=== PATIENT | female | born 1995 | race Caucasian/White ===

== ENCOUNTER 2019-07-22 16:02 | Emergency (ER) | payer BC, SELFPAY ==
[2019-05-16 16:43] VITALS: BMI 52.8
[2019-07-22 16:03] VITALS: BP 149/89; PULSE 104; RESP 16; TEMP 36.8; O2SAT 97; BMI 56.7
[2019-07-22 16:18] VITALS: BP 149/89; PULSE 104; RESP 16; TEMP 36.8; O2SAT 97
[2019-07-22 16:37] LABS: Mucous, Urine 0 SEEN /hpf (<or=2+); Red Blood Cells-Urine 0 SEEN /hpf (0-5)
[2019-07-22] MEDS: Ketorolac 30 MG/ML Syringe IV (16:40)
[2019-07-22] MEDS: 0.9% Normal Saline 1,000 ML 999 ML IV (16:40)
[2019-07-22] MEDS: Metoclopramide 10 MG/2 ML Vial IV (16:41)
[2019-07-22 16:42] LABS: Color, Urine Yellow (Yellow); Glucose, Dipstick Normal (Normal); Ketone-Dipstick Negative (Negative); Leukocyte Esterase-Dipstick 25 /ul (Negative); Nitrite-Dipstick Negative (Negative); Occult Blood-Urine Negative /ul (Negative); Protein-Dipstick Negative (Negative); Urine Bilirubin Dipstick Negative (Negative); Urine Clarity Sl. Cloudy (Clear); Urine Urobilinogen Normal (Normal)
[2019-07-22 16:45] LABS: Internal QC Validated? YES +Cl - CLEAR BKGD; Pregnancy, Urine Negative Negative
[2019-07-22 16:51] LABS: Bacteria 1+ /hpf (None Seen); Squamous Epithelial Cells - UA 0-5 SEEN /hpf (5-10); White Blood Cells 0-5 SEEN /hpf (0-5)
--- NOTE | 2019-07-22 16:56 | ED.VISSUMM ---
- ER Visit Summary Date of Service: 07/22/19 Chief Complaint: Headache and back pain History of Present Illness: The patient is a [address] Vasquez. She reports that she has a headache that began 2 days ago. Is gradually gotten worse. It is a throbbing headache that is frontal in location. She states is 7 out of 10 at worst and 4-10 currently. Is worsened by sound. She taken ibuprofen and Excedrin with minimal relief. She is had nausea without any vomiting. She denies any change in her vision. No photophobia. No fever or chills. No recent injury to her head. Patient also complains of low back pain again approximately 2 hours ago. Is a sharp pain it was 6 out of 10 at worst and 5-10 currently. Is increased with sitting up. Nothing makes this better. There is no ration to her legs. No problems with her bowels or bladder. No groin numbness. Physical Examination: Vitals: Stable. Afebrile. General: A&O x 3. NAD. Cardiovascular exam: Regular rate and rhythm, no murmur, rub or gallop. Respiratory exam: Clear to auscultation bilaterally. No wheezes or stridor. Abdominal exam: Soft, nontender, nondistended, normal bowel sounds. No peritoneal signs. Back: Diffuse moderate tenderness to palpation over the lumbar spine and the paraspinous musculature in the lumbar region. No point tenderness. Negative straight leg bilaterally. 5/5 DF, PF, EHL bilaterally. Normal sensation to light touch throughout. Extremity: No clubbing, cyanosis, or edema. Test Results: Urinalysis is negative. test is negative. Emergency Department Course and Treatment: Patient was given a liter of normal saline. She was given Toradol and Reglan IV. She is had significant relief. Treatment Plan: Patient will be discharged with Reglan. Instructed to continue to use this for headache as needed. She is also instructed use ibuprofen and/or Tylenol for her back pain. Follow-up with her primary care physician in 1 to 2 days if not improving. Return to the emergency department for any worsening symptoms. Disposition: To home in improved and stable condition. Impression: 1 1. Cephalgia. 2. Low back pain, acute. This note was generated with [employer] software. It may contain incorrect words, spelling, and punctuation that were not noted in review of the chart prior to signing ED Disposition - Plan for ED Patient: Instructions: ED Headache Unspecified, ED Back Pain Acute or Chronic Prescriptions: Metoclopramide [Reglan] 10 mg PO 4X/DAY PRN #20 tablet PRN Reason: Headache Referrals: Azar Yuen STRANDING MACHINE OPERATOR-C [Primary Care Provider] - 1-2 Days if not improving
[2019-07-22 17:04] VITALS: BP 149/89; PULSE 104; RESP 16; TEMP 36.8; O2SAT 97
[2019-07-22 17:32] VITALS: BP 136/78; PULSE 96; RESP 16; O2SAT 99
== END 2019-07-22 17:34 | disposition home or self-care (01) ==
LOC: ED 16:50
PROVIDERS: Emergency Provider Emergency Medicine; PCP Nurse Practitioner Primary Care
DX: R51 Headache (principal); M54.5 Low back pain
CPT/HCPCS: 81001; 81025; 96361; 96374; 96375; 99283; J7030; A4216

== ENCOUNTER 2019-08-02 22:58 | Emergency (ER) | payer BC, SELFPAY ==
[2019-08-02 22:59] VITALS: BP 154/88; PULSE 138; RESP 16; TEMP 37.6; O2SAT 95; BMI 58.9
--- NOTE | 2019-08-02 23:22 | EKG12_ITS ---
Test Reason : FEVER Blood Pressure : / mmHG Vent. Rate : 115 BPM Atrial Rate : 115 BPM P-R Int : 122 ms QRS Dur : 086 ms QT Int : 328 ms P-R-T Axes : 031 019 010 degrees QTc Int : 453 ms Sinus tachycardia Otherwise normal ECG Confirmed by MYA PETERSEN MD ([id number]), movie editor KIN YOUNG ([id number]) on 08/04/2019 3:18:28 PM Referred By: BB Confirmed By:MYA PETERSEN MD
--- NOTE | 2019-08-02 23:22 | RAD_ITS ---
STUDY: X-RAY CHEST REASON FOR EXAM: Female, 24 years old. FEVER, COUGH X 1 WEEK TECHNIQUE: Single AP portable view of the chest. COMPARISON: None. FINDINGS: The lungs are clear and expanded. There is no demonstrated pleural abnormality. Normal size heart. Normal mediastinum and christel. Normal visualized pulmonary arteries. Normal visualized aortic arch and descending thoracic aorta. Normal visualized thoracic spine. Normal visualized ribs, clavicles, and shoulders. There is no demonstrated abnormality of the visualized soft tissue structures of the upper abdomen. RAD/Chest 1 View (Portable) IMPRESSION: Normal x-ray examination of the chest. Electronically Signed: Santiago Champion, at 0:12 EDT Tel , Service support ,
--- NOTE | 2019-08-02 23:24 | ED.DCSUM_ITS ---
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 She states she was seen at [facility] for some outpatient testing including COVID after having 3 different virtual doctor visits, and was tested for influenza. She tested negative for COVID and positive for influenza and told that she has pneumonia. She states she never had a chest x-ray. She denies any shortness of breath. Her cough is been nonproductive. She presents here tonight because of persistence of fevers despite taking antipyretics and 1- 2 days of pain in her left calf and her right buttock without injury that she knows of. She denies any swelling or edema in her legs. She has no past medical history or history of DVT or PE. She states she takes no prescriptions other than what she has been given during this illness which includes basically just a cough suppressant. Later, she admits that she takes control pills, but hasn't taken any in the last week. Past Medical History - Allergies and Home Meds Allergies/Adverse Reactions: Allergies No Known Allergies Allergy (Verified 07/22/19 16:02) Primary Care Physician: Azar Yuen NP-C [Primary Care Provider] - Past Medical History: None Smoking Status: Current some day smoker - Vaping only Drugs: None - Family History Maternal Family History: Reports: Clotting Disorder - MTHFR, Heart Disease - 7 stents and 2-way CABG Review of Systems General: Reports: Chills, Fever. Denies: Sweats Eyes: Denies: Visual changes - bilaterally, Diplopia ENT: Reports: Rhinorrhea. Denies: Bilateral ear pain, Sore throat Cardiovascular: Denies: Chest pain, Palpitations Respiratory: Reports: Cough. Denies: Dyspnea, Sputum, Dyspnea on exertion Gastrointestinal: Denies: Abdominal pain, Nausea, Vomiting, Diarrhea, Melena, Hematochezia Genitourinary: Denies: Dysuria, Hematuria, Frequency Musculoskeletal: Reports: Back pain - Right buttock only. No midline back pain., Extremity Pain. Denies: Neck pain, Swelling Skin: Denies: Rash, Wounds Neurological: Denies: Headache, Weakness, Numbness Physical Exam Vital Signs/Narrative: Vital Signs Temp Pulse Resp BP Pulse Ox 08/02/19 22:59 99.6 F H 138 H 16 154/88 H 95 Inital Vital Signs reviewed: Yes General: Well nourished, Well developed, Obese, No Acute Distress Head: Normocephalic, Atraumatic Eyes: Perrl, EOMI ENT: Moist mucous membranes, No rhinorrhea, TM's clear. Negative for: Sinus tenderness Neck: Supple, Nontender, No lymphadenopathy, No JVD Cardiovascular: Regular rate, Regular rhythm, No murmurs, Tachycardia Respiratory: No distress, CTA bilaterally, Chest nontender Abdomen: Soft, Nontender, Nondistended, Normal bowel sounds Back: Nontender, Normal Inspection, - - Tender in right buttock, with palpation into the subcutaneous fat and muscle, deep palpation not necessary to elicit pain. Inspection in this area is normal.. Negative for: CVA tenderness Extremities: No edema, Calf Tenderness - Mild, left only. No palpable cords, no skin lesions., - - Painless full range of motion of all joints including the right hip without pain in the groin. Skin: Normal color, No rash, No Trauma Neurological: Alert, Oriented x3, Cranial nerves II-XII grossly intact, Normal Strength, Normal Sensation, Normal Gait Psychological: Normal affect, Normal Mood Diagnostic/Tx/Re-eval Impressions Chest X-Ray 08/02/19 23:22 IMPRESSION: Normal x-ray examination of the chest. Electronically Signed: Santiago Champion at 0:12 EDT Tel , Service support , Chest CTA 08/03/19 00:14 IMPRESSION: Multiple moderate sized lobar, segmental and subsegmental pulmonary emboli are seen in the right and left lingular lobes. There is no evidence of right heart strain. Electronically Signed: Santiago Champion at 2:04 EDT Tel , Service support , ADDENDUM: 08/03/19 0217 IMPRESSION: Multiple moderate sized lobar, segmental and subsegmental pulmonary emboli are seen in the right and left lingular lobes. There is no evidence of right heart strain. N.B. : The above information has been verbally conveyed by Santiago Champion to Devon Biggs MD, on 08/03/2019 02:10:51 (ET). Electronically Signed: Santiago Champion, at 2:04 EDT Tel , Service support , 08/02/19 23:22 Chest 1 View (Portable) [RAD] Stat 08/03/19 00:14 CTA Chest W/WO Contrast [CT] Stat 08/03/19 01:46 Mucosa - Nasopharyngeal Coronavirus COVID-19 PCR - Final - Not Detected Laboratory Results 08/02/19 08/02/19 08/02/19 23:18 23:18 23:18 WBC 11.8 H RBC 4.89 Hgb 13.2 Hct 41.9 MCV 85.7 MCH 27.0 MCHC 31.5 L RDW Std Deviation 43.0 RDW Coeff of [place] 13.6 Plt Count 210 MPV 10.0 Immature Gran % (Auto) 0.300 Neut % (Auto) 36.3 L Lymph % (Auto) 57.0 H Cavalier % (Auto) 4.2 Eos % (Auto) 1.2 Baso % (Auto) 1.0 Absolute Neuts (auto) 4.3 Absolute Lymphs (auto) 6.70 H Nucleated RBC % 0 Reactive Lymphocytes 2+ Platelet Estimate ADEQUATE RBC Morphology NORM C+C PT 13.8 INR 1.1 APTT 33.0 D-Dimer Quant (PE/DVT) 10.45 H* Sodium 139 Potassium 3.5 Chloride 107 Carbon Dioxide 26.0 Anion Gap 6 BUN 9 Creatinine 0.86 Estim Creat Clear Calc 77.43 Est GFR (MDRD) Af Amer 106 Est GFR (MDRD) Non-Af 88 BUN/Creatinine Ratio 10.5 Glucose 99 Lactic Acid Calcium 8.5 Total Bilirubin 0.40 AST 63 H ALT 74 H Alkaline Phosphatase 91 Troponin I < 0.015 Total Protein 7.2 Albumin 2.7 L Globulin 4.5 H Albumin/Globulin Ratio 0.6 L Urine Color Urine Clarity Urine pH Ur Specific [place] Urine Protein Urine Glucose (UA) Urine Ketones Urine Occult Blood Urine Nitrite Urine Bilirubin Urine Urobilinogen Ur Leukocyte Esterase Urine RBC Urine WBC Ur Squamous Epith Cells Urine Bacteria Urine Mucus COVID-19 (VIELKA) 08/02/19 08/03/19 08/03/19 23:18 00:12 01:46 WBC RBC Hgb Hct MCV MCH MCHC RDW Std Deviation RDW Coeff of [place] Plt Count MPV Immature Gran % (Auto) Neut % (Auto) Lymph % (Auto) Cavalier % (Auto) Eos % (Auto) Baso % (Auto) Absolute Neuts (auto) Absolute Lymphs (auto) Nucleated RBC % Reactive Lymphocytes Platelet Estimate RBC Morphology PT INR APTT D-Dimer Quant (PE/DVT) Sodium Potassium Chloride Carbon Dioxide Anion Gap BUN Creatinine Estim Creat Clear Calc Est GFR (MDRD) Af Amer Est GFR (MDRD) Non-Af BUN/Creatinine Ratio Glucose Lactic Acid 0.9 Calcium Total Bilirubin AST ALT Alkaline Phosphatase Troponin I Total Protein Albumin Globulin Albumin/Globulin Ratio Urine Color Yellow Urine Clarity Sl. Cloudy Urine pH 6.0 Ur Specific [place] 1.020 Urine Protein 30 H Urine Glucose (UA) Normal Urine Ketones 5 H Urine Occult Blood 25 H Urine Nitrite Negative Urine Bilirubin 1 H Urine Urobilinogen 1 H Ur Leukocyte Esterase 500 H Urine RBC 0-5 SEEN Urine WBC 0-5 SEEN Ur Squamous Epith Cells 5-10 SEEN Urine Bacteria 2+ Urine Mucus 0 SEEN COVID-19 (VIELKA) Cancelled - Rhythm Strip Rhythm Strip: Sinus Tach Rate: 115 Ectopy: None - EKG Initial EKG Interpretation: No Acute Injury Pattern, Sinus Tachycardia - otherwise, nml EKG - Medical Decision Making I do not think a hip or pelvis or back x-ray is needed. She is fairly superficially tender and not very tender, in the right distal buttock. With flexing at the hip, it makes her pain worse, as the buttock is stretched, but not severely so, and there is no pain in the hip joint with internal/external rotation. Straight leg raises are negative bilaterally, eliciting only buttock pain and no radicular symptoms. She is neurovascularly intact distally both lower extremities. She has tachycardia out of proportion to her temperature and symptoms, hence septic work-up including cardiac tests were performed, in addition to a d-dimer since ultrasound is not available at the hour the patient presents which is almost midnight. The d-dimer was significantly elevated. Therefore I treated her empirically with Lovenox with plans to have her ultrasounded as an outpatient, but then I also ordered CT angiography because of her significant resting tachycardia, even though she has had no chest discomfort or dyspnea. Her CT angiogram shows bilateral multiple pulmonary emboli, mostly in the lower lobes. She also has some mild infiltrate in the right lower lobe that radiology said was likely due to early pulmonary infarct. It does not fit a pulmonary COVID pattern, however given thromboembolism in an otherwise young healthy female who is not an IV drug abuser in context of a febrile illness and a relatively high incidence of false negative COVID tests been reported nationwide during the current national coronavirus emergency, I had her retested for COVID. The test was run in-house in 2 hours; it returned negative. Her only risk for pulmonary embolism is the fact that she is on control pills; it is unknown to me whether vaping confers additional risk or not. 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 Initially, I thought she met criteria for SIRS, so Rocephin was ordered empirically, but it was discontinued since her respiratory rate was only 20 and needed to be greater than 20 to meet criteria. Given that she has had 2 negative COVID tests and after a week of fevers has a CT without the typical COVID appearance/infiltrates, in addition to a leukocytosis which is less common with COVID, I think she very unlikely has the novel coronavirus infection. With rest in the ED while awaiting test results, her heart rate improved to the low 110s. Her PESI score is 42, placing her in the very-low risk category with mortality less than 1.6%. She is not hypoxic. I discussed all of this with the hospitalist, who put in some additional hypercoagulable orders, those tests are not back yet, we had limited blood specimen available prior to giving her Lovenox, so we ramble we could on that blood. We both feel the patient can be discharged home safely given that she did have a positive influenza test that explains her fevers at outside hospital according to the patient, and other than the resting tachycardia is stable with regards to her pulmonary emboli. She is anticoagulated. Will prescribe her anticoagulant and she can follow-up with her doctor as an outpatient. All questions answered at the bedside and discussed reasons to return. ED Disposition - Plan for ED Patient: Disposition: Home or Assisted Living Diagnosis: Bilateral pulmonary embolism, Influenza, Right buttock pain, Pain of left calf Instructions: Pulmonary Embolism Prescriptions: Apixaban [Eliquis] 10 mg PO BID 30 Days #74 tab Prescription Printed traMADol [Ultram] 50 mg PO Q4H PRN PRN 2 Days #12 tab PRN Reason: Pain Prescription Printed Referrals: Azar Yuen NP-C [Primary Care Provider] - As soon as possible
[2019-08-02] MEDS: 0.9% Normal Saline 1,000 ML 999 ML IV (23:35)
[2019-08-02 23:36] LABS: Absolute Neutrophil Count 4.3 X10^3/uL (2.0-7.7); Basophil# 0.12 X10^3/uL; Eosinophil# 0.14 X10^3/uL; Eosinophils% 1.2 % (0-5); Hematocrit 41.9 % (37-47); Hemoglobin 13.2 g/dL (12.0-15.0); Mean Corp Hgb Conc 31.5 g/dL (32-36); Mean Corpuscular Volume 85.7 fL (81-99); Monocyte# 0.49 X10^3/uL; Monocyte% 4.2 % (0-10); NRBC Flagged by Analyzer 0 % (0-5); Neutrophil # 4.27 X10^3/uL (2.7-7.7); Neutrophil % 36.3 % (47-70); POSITIVE DIFFERENTIAL YES; POSITIVE MORPHOLOGY YES; Platelet Count 210 K/mm3 (150-450); RBC Distribution Width CV 13.6 % (11.6-14.6); Red Blood Count 4.89 M/mm3 (4.2-5.4); White Blood Count 11.8 K/mm3 (4.4-11.0)
[2019-08-02 23:47] LABS: International Normalized Ratio 1.1; Prothrombin Time (Protime)PT. 13.8 SECONDS (11.7-14.9)
[2019-08-02 23:52] LABS: ALB/GLOB Ratio 0.6 RATIO (0.9-2.4); AST(SGOT) 63 U/L (15-37); Alanine Aminotransfer ALT/SGPT 74 U/L (13-56); Albumin, Serum 2.7 g/dL (3.2-5.0); Alkaline Phosphatase 91 U/L (45-117); Anion Gap 6 (5-15); BUN 9 mg/dL (7-18); BUN/Creat Ratio 10.5 RATIO (10-20); Calcium,Total 8.5 mg/dL (8.5-10.1); Chloride 107 mmol/L (98-107); Creatinine, Serum 0.86 mg/dL (0.55-1.02); EST Glomerular Filtration Rate 88 mL/min (>60); Est Glom Filt Rate - Afr Amer 106 mL/min (>60); Estimated Creatinine Clearance 77.43 ml/min; Globulin 4.5 g/dL (2.2-4.2); Glucose 99 mg/dL (74-106); Potassium 3.5 mmol/L (3.5-5.1); Protein, Total 7.2 g/dL (6.4-8.2); Sodium Level 139 mmol/L (136-145)
[2019-08-02 23:57] LABS: Lactic Acid 0.9 mmol/L (0.4-1.9)
[2019-08-03] VITALS (7 sets, daily range): BP systolic 105–128; BP diastolic 59–76; PULSE 113–126; RESP 16–23; TEMP 36.7–37.5; O2SAT 95–98
[2019-08-03] LABS: D-Dimer Quantitative (DVT/PE) 10.45 FEU/ug/m (0.27-0.49)
[2019-08-03 00:02] LABS: Differential Indicated SCAN CRITERIA MET; Platelet Estimate ADEQUATE (ADEQ); Reactive Lymphocyte 2+; Red Cell Morphology NORM C+C NORMAL (NORM C&C)
--- NOTE | 2019-08-03 00:14 | CT_ITS ---
We are attempting to reach an attending provider to discuss findings. An addendum with communication details will be sent when the communication is complete. STUDY: CTA CHEST REASON FOR EXAM: Female, 24 years old. TACHYCARDIA/ABN DDIMER OF 10.45/RT LEG PAIN AND CRAMPING RADIATION DOSAGE (If Supplied By Facility): CTDIvol = ( 13.26 ) mGy, DLP = ( 881.22 ) mGycm TECHNIQUE: The examination was performed with the intravenous administration of Isovue 370 150. Post-processing of the angiographic images was performed, with multiplanar reformation and 3D reconstruction. Individualized dose optimization techniques were used for this CT. COMPARISON: None. FINDINGS: Normal enhancement of the main pulmonary artery and right and left pulmonary arteries. Multiple moderate sized lobar, segmental and subsegmental pulmonary emboli are seen in the right and left lingular lobes. There is no evidence of right heart strain. Normal thoracic aorta and visualized great vessels. There is no demonstrated aortic dissection. Normal heart and pericardium. Normal mediastinum. Normal hilar regions. Normal visualized trachea and bronchi. The lungs are well expanded. Ill-defined subpleural groundglass opacities as seen in the right lung lower lobe suggesting small pulmonary infarctions. Normal pleura. Normal chest wall structures. Normal osseous structures. Normal visualized upper abdomen. CT/CTA Chest W/WO Contrast IMPRESSION: Multiple moderate sized lobar, segmental and subsegmental pulmonary emboli are seen in the right and left lingular lobes. There is no evidence of right heart strain. Electronically Signed: Santiago Champion, at 2:04 EDT Tel , Service support ,
[2019-08-03 00:17] LABS: Mucous, Urine 0 SEEN /hpf (<or=2+)
[2019-08-03 00:21] LABS: Color, Urine Yellow (Yellow); Glucose, Dipstick Normal (Normal); Ketone-Dipstick 5 mg/dl (Negative); Leukocyte Esterase-Dipstick 500 /ul (Negative); Nitrite-Dipstick Negative (Negative); Occult Blood-Urine 25 /ul (Negative); Protein-Dipstick 30 mg/dl (Negative); Urine Clarity Sl. Cloudy (Clear); Urine Urobilinogen 1 mg/dl (Normal)
[2019-08-03 00:34] LABS: Urine Bilirubin Dipstick 1 mg/dL (Negative)
[2019-08-03 00:44] LABS: Bacteria 2+ /hpf (None Seen); Red Blood Cells-Urine 0-5 SEEN /hpf (0-5); Squamous Epithelial Cells - UA 5-10 SEEN /hpf (5-10); White Blood Cells 0-5 SEEN /hpf (0-5)
[2019-08-03] MEDS: Enoxaparin 150 MG/ML Syringe 140 MG SC (01:26)
[2019-08-03] MEDS: Ceftriaxone 1 GM/50 ML BAG IV (01:57)
--- NOTE | 2019-08-03 04:13 | ED.RN ---
0200: VERBAL ORDER RCVD FROM DR HOGUE TO NOT HANG ROCEPHIN IV. ROCEPHIN JUST STARTED, ROCEPHIN STOPPED & DC'D AT THIS TIME
[2019-08-03] MEDS: traMADol 50 MG Tablet PO (04:42)
[2019-08-11 14:07] LABS: Protein C Antigen 84 % (60-150); Protein C, Functional 84 % (73-180)
== END 2019-08-03 05:08 | disposition home or self-care (01) ==
PROVIDERS: Internal Medicine; Emergency Provider Emergency Medicine; PCP Nurse Practitioner Primary Care
DX: I26.99 Other pulmonary embolism without acute cor pulmonale (principal); J11.1 Influenza due to unidentified influenza virus with other respiratory manifestations; M79.10 Myalgia, unspecified site; M79.662 Pain in left lower leg; E66.9 Obesity, unspecified; F17.290 Nicotine dependence, other tobacco product, uncomplicated
CPT/HCPCS: 36415; 71045; 71275; 80053; 81001; 81241; 83605; 84484; 85025; 85302; 85303; 85379; 85610; 85730; 87040; 87086; 87088; 87635; 93005; 99285; G2023; J7030; Q9967; A4216; U0002

== ENCOUNTER → 2019-08-13 10:50 | Outpatient (CLI) | payer BC, SELFPAY ==
[2019-08-02 22:59] VITALS: BMI 58.9
[2019-08-12 09:11] VITALS: BMI 58.9
--- NOTE | 2019-08-13 10:55 | ECHOD_ITS ---
Reason For Study: Pulmonary emboli Procedure This was a 2D Doppler, Color Flow transthoracic echocardiogram. The study was technically difficult. Exam performed in department. Left Ventricle Normal LV size. Left ventricular systolic function is normal. The estimated ejection fraction is 55 %. No evidence for diastolic dysfunction. No regional wall motion abnormalities noted. Right Ventricle Normal RV size. Normal systolic function. Atria Normal left atrium. Normal right atrium. No doppler evidence for ASD. Mitral Valve There is no mitral annular calcification. Normal mitral valve. Trivial mitral valve insufficiency. Tricuspid Valve Normal tricuspid valve. Trivial tricuspid valve insufficiency. Right ventricular systolic pressure estimated to be 22 mmHg. Aortic Valve The aortic valve is not well visualized. Pulmonic Valve The pulmonic valve is not well visualized. Trivial pulmonic valve insufficiency. Great Vessels Normal sized aortic root. Pericardium/Pleural No pericardial effusion. MMode/2D Measurements & Calculations LVIDd: 4.4 cm IVSd: 0.88 cm Ao root diam: 2.7 cm LVIDs: 2.8 cm LVPWd: 0.95 cm FS: 36.8 % LAV(MOD-bp): 41.8 ml LVAd ap4: 29.5 cm2 SV(MOD-sp4): 60.5 ml LAV(MOD-bp) Indexed: 18.3 ml/m2 EDV(MOD-sp4): 91.5 ml LAV(MOD-sp2): 36.7 ml EDV(sp4-el): 94.9 ml LAV(MOD-sp4): 39.6 ml LVAs ap4: 15.5 cm2 ESV(MOD-sp4): 31.0 ml ESV(sp4-el): 31.4 ml EF(MOD-sp4): 66.1 % EF(sp4-el): 66.9 % SV(sp4-el): 63.5 ml LA A4 area: 15.4 cm2 LA dimension(2D): 2.5 cm RA A4 area: 12.5 cm2 Doppler Measurements & Calculations MV E max [place]: 104.5 cm/sec Lat Peak E' [place]: 14.5 cm/sec Med Peak E' [place]: 12.7 cm/sec MV A max [place]: 63.9 cm/sec E/E' lat: 7.2 E/E' med: 8.2 MV E/A: 1.6 Ao V2 max: 146.1 cm/sec LV V1 max: 115.1 cm/sec PA V2 max: 101.9 cm/sec Ao max P.5 mmHg LV V1 max P.3 mmHg TR max [place]: 216.3 cm/sec TR max P.7 mmHg Interpretation Summary The study was technically difficult. Left ventricular systolic function is normal. The estimated ejection fraction is 55 %. Trivial mitral valve insufficiency. Trivial tricuspid valve insufficiency. Trivial pulmonic valve insufficiency. Right ventricular systolic pressure estimated to be 22 mmHg. No evidence for diastolic dysfunction. Ordering Physician: Vic Prieto Referring Physician: Vic Prieto Performed By: Maris Malik RDCS
== END ==
LOC: CVS 10:51
PROVIDERS: PCP Nurse Practitioner Primary Care; Referring Provider Student in an Organized Health Care Education/Training Program; Visit Provider Student in an Organized Health Care Education/Training Program
DX: I26.99 Other pulmonary embolism without acute cor pulmonale (principal)
CPT/HCPCS: 93306

== ENCOUNTER 2022-08-23 18:06 | Emergency (ER) | payer BC, SELFPAY ==
[2022-08-23 18:06] VITALS: BP 141/92; PULSE 94; RESP 18; TEMP 36.6; O2SAT 98
--- NOTE | 2022-08-23 18:18 | CT_ITS ---
STUDY: CTA CHEST REASON FOR EXAM: Female, 27 years old. SOB RADIATION DOSAGE (If Supplied By Facility): CTDIvol = ( 12.67 ) mGy, DLP = ( 581.01 ) mGycm TECHNIQUE: The examination was performed with the intravenous administration of IV 100mL Isovue-370. Post-processing of the angiographic images was performed, with multiplanar reformation and 3D reconstruction. Individualized dose optimization techniques were used for this CT. COMPARISON: 08/03/2019. FINDINGS: Normal enhancement of the main pulmonary artery and right and left pulmonary arteries. Normal enhancement of the bilateral peripheral pulmonary arteries. There is no demonstrated pulmonary embolism. Normal thoracic aorta and visualized great vessels. There is no demonstrated aortic dissection. Normal heart and pericardium. Normal mediastinum. Normal hilar regions. Normal visualized trachea and bronchi. The lungs are well expanded. Normal pulmonary parenchyma. Normal pleura. Normal chest wall structures. Normal osseous structures. Normal visualized upper abdomen. CT/CTA Chest W/WO Contrast IMPRESSION: Normal CTA chest examination, without a demonstrated pulmonary embolism or arterial dissection. Electronically Signed: Jean Lawrence MD at 19:47 EDT ,
--- NOTE | 2022-08-23 18:20 | ED.VIS.DYS ---
HPI History of Present Illness Chief Complaint: Shortness of Breath Narrative Narrative: Patient presents with chest pain and shortness of breath that feels just like the last time she had a PE. This has been ongoing for few days, she recently drove 7 hours to [place] and back. She has no fever or chills, no back pain or tearing sensation. No lower extremity edema or calf pain no upper respiratory symptoms. She is found to have factor V Leiden, as well as an MTHFR mutation PFSH PFS Medical History Anxiety Back pain Depression Difficulty sleeping Factor 5 Leiden mutation, heterozygous Internal hemorrhoid Molluscum contagiosum infection Morbid obesity Multiple pulmonary emboli (08/03/19) Plantar fasciitis of right foot Pulmonary emboli Thrombophilia Thyroid disease Worst headache of life Home Medications levothyroxine 25 mcg tablet 75 mcg PO DAILY 12/29/20 [History Last Taken Unknown] dulaglutide 1.5 mg/0.5 mL subcutaneous pen injector (Trulicity) 1.5 mg subcut QWEEK 08/23/22 [History Last Taken Unknown] Allergy/AdvReac Type Severity Reaction Status Date / Time Penicillins Allergy Hives Verified 08/23/22 18:08 Family History Mother MTHFR mutation History of heart artery stent Hx of CABG Father Myocardial infarction Surgical History History of cholecystectomy Hx of wisdom tooth extraction Social History Smoking Status: Former smoker how long ago did patient quit smoking: pt reports she has a history of vaping alcohol intake: never substance use type: does not use caffeine: No ROS ROS ED ROS Narrative Past medical history: Reviewed Medications: Reviewed Social history: Noncontributory Review of systems: All systems negative except as indicated ENT: No upper airway congestion, normal voice Neck: No neck pain Cardiovascular: Chest pain Respiratory: Dyspnea Gastrointestinal: No abdominal pain, nausea vomiting or diarrhea Genitourinary: No dysuria Musculoskeletal: Denies myalgias no difficulty with ambulation no calf pain Skin: No rash EXAM Physical Exam Narrative Exam Narrative: Physical exam General: Well nourished, Well developed, No Acute Distress Head: Normocephalic, Atraumatic Eyes: Conjunctiva not pale ENT: Moist mucous membranes Neck: Supple, Nontender, No lymphadenopathy Cardiovascular: Regular rate, Regular rhythm Respiratory: No distress, CTA bilaterally Abdomen: Soft, Nontender, Nondistended Back: Nontender, Normal Inspection. Negative for: CVA tenderness Extremities: Nontender, No edema Skin: Normal color, No rash Neurological: Alert, Normal Strength, Normal Sensation Psychological: Normal affect Const Vital Signs: 08/23/22 18:06 Temperature 97.9 F Temperature Source Temporal Pulse Rate 94 Respiratory Rate 18 Blood Pressure 141/92 H Blood Pressure Mean 108 Pulse Ox 98 Oxygen Delivery Method Room Air MDM MDM MDM Narrative Medical decision making narrative: I discussed the patient with mom who is at the bedside as well as patient. Patient has a normal work-up, troponin is normal I am not worried about cardiac etiology. I was however worried about a PE since the patient has risk factors. CT angiogram did not show any PE. It did not show any pneumonia or pneumothorax. Patient appears well. She may have musculoskeletal etiology for her back pain for which she can take [id number] Motrin. At this time there is no indication for admission. Believe I thoroughly worked her up for thromboembolic disease or [place] or any other catastrophes as a cause of her chest pain. She be discharged in stable condition. Lab Data Labs: Laboratory Results - last 24 hr 08/23/22 08/23/22 08/23/22 17:35 18:30 18:30 WBC 8.1 RBC 5.02 Hgb 14.5 Hct 45.0 MCV 89.6 MCH 28.9 MCHC 32.2 RDW Std Deviation 40.9 RDW Coeff of Polo 12.4 Plt Count 350 MPV 9.3 Immature Gran % (Auto) 0.200 Neut % (Auto) 58.6 Lymph % (Auto) 30.4 Petroleum % (Auto) 6.5 Eos % (Auto) 3.6 Baso % (Auto) 0.7 Absolute Neuts (auto) 4.8 Absolute Lymphs (auto) 2.47 Nucleated RBC % 0 Sodium 140 Potassium 3.9 Chloride 106 Carbon Dioxide 29.0 Anion Gap 5 BUN 11 Creatinine 0.87 Estim Creat Clear Calc 74.59 Est GFR (MDRD) Af Amer 103 Est GFR (MDRD) Non-Af 85 BUN/Creatinine Ratio 12.7 Glucose 99 Calcium 9.3 Total Bilirubin 0.60 AST 21 ALT 23 Alkaline Phosphatase 94 Troponin I High Sens < 3 L Total Protein 8.1 Albumin 3.9 Globulin 4.2 Albumin/Globulin Ratio 0.9 Urine Test Negative Discharge Plan Triage Chief Complaint: Shortness of Breath ED Provider: Abel Mayen Dx/Rx/DC Orders Clinical Impression: Chest pain, Thrombophilia, Factor 5 Leiden mutation, heterozygous, Multiple pulmonary emboli Instructions: Understanding the Pain Response Prescriptions: No Action levothyroxine 25 mcg tablet 75 mcg PO DAILY Trulicity 1.5 mg/0.5 mL pen injector 1.5 mg SUBCUT QWEEK Primary Care Provider: Azar Yuen NP Referrals: Azar Yuen [employer] UP [employer]PERATOR, [employer] UP OPERATOR-C [Primary Care Provider] - 3-5 Days Disposition Disposition: Home, Self Care
[2022-08-23 18:42] VITALS: BMI 53.3
[2022-08-23 18:45] LABS: Absolute Lymphocyte Count 2.47 X10^3/uL (0.83-4.51); Absolute Neutrophil Count 4.8 X10^3/uL (2.0-7.7); Basophil# 0.06 X10^3/uL; Basophil% 0.7 % (0-1); Eosinophil# 0.29 X10^3/uL; Eosinophils% 3.6 % (0-5); Hemoglobin 14.5 g/dL (12.0-15.0); Lymphocyte # 2.47 X10^3/ul (0.83-4.51); Lymphocyte % 30.4 % (19-41); Mean Corp Hgb Conc 32.2 g/dL (32-36); Mean Corpuscular Hgb 28.9 pg (27.0-32.0); Mean Corpuscular Volume 89.6 fL (81-99); Mean Platelet Vol. 9.3 fl (6.2-12.0); Monocyte# 0.53 X10^3/uL; Monocyte% 6.5 % (0-10); NRBC Flagged by Analyzer 0 % (0-5); Neutrophil # 4.76 X10^3/uL (2.7-7.7); Neutrophil % 58.6 % (47-70); Platelet Count 350 K/mm3 (150-450); RBC Distribution Width CV 12.4 % (11.6-14.6); RBC Distribution Width SD 40.9 fl (35.1-43.9); Red Blood Count 5.02 M/mm3 (4.2-5.4); White Blood Count 8.1 K/mm3 (4.4-11.0)
[2022-08-23 18:58] LABS: Internal QC Validated? YES +Cl - CLEAR BKGD; Pregnancy, Urine Negative Negative
[2022-08-23 19:12] LABS: ALB/GLOB Ratio 0.9 RATIO (0.9-2.4); AST(SGOT) 21 U/L (15-37); Alanine Aminotransfer ALT/SGPT 23 U/L (13-56); Albumin, Serum 3.9 g/dL (3.2-5.0); Alkaline Phosphatase 94 U/L (45-117); Anion Gap 5 (5-15); BUN 11 mg/dL (7-18); BUN/Creat Ratio 12.7 RATIO (10-20); Calcium,Total 9.3 mg/dL (8.5-10.1); Chloride 106 mmol/L (98-107); Creatinine, Serum 0.87 mg/dL (0.55-1.02); EST Glomerular Filtration Rate 85 mL/min (>60); Est Glom Filt Rate - Afr Amer 103 mL/min (>60); Estimated Creatinine Clearance 74.59 ml/min; Globulin 4.2 g/dL (2.2-4.2); Glucose 99 mg/dL (74-106); Potassium 3.9 mmol/L (3.5-5.1); Protein, Total 8.1 g/dL (6.4-8.2); Sodium Level 140 mmol/L (136-145); Troponin-I HS < 3 pg/mL (3.0-54.0)
== END 2022-08-23 20:16 | disposition home or self-care (01) ==
PROVIDERS: Emergency Provider Emergency Medicine; PCP Nurse Practitioner Primary Care; Visit Provider Emergency Medicine
DX: R07.9 Chest pain, unspecified (principal); E66.01 Morbid (severe) obesity due to excess calories; Z68.43 Body mass index [BMI] 50.0-59.9, adult; E72.12 Methylenetetrahydrofolate reductase deficiency; D68.59 Other primary thrombophilia; D68.51 Activated protein C resistance; Z86.711 Personal history of pulmonary embolism; Z87.891 Personal history of nicotine dependence
CPT/HCPCS: 71275; 80053; 81025; 84484; 85025; 99283; Q9967; A4216

== ENCOUNTER → 2023-04-10 | Outpatient (CLI) | payer BC, SELFPAY ==
[2023-04-13 22:55] LABS: HPV Reflexed? NOT INDICATED
== END | disposition home or self-care (01) ==
LOC: LABSPEC 11:42
PROVIDERS: PCP Student in an Organized Health Care Education/Training Program; Referring Provider Obstetrics & Gynecology; Visit Provider Obstetrics & Gynecology
DX: Z12.4 Encounter for screening for malignant neoplasm of cervix (principal)
CPT/HCPCS: 88175; G0145